=== PATIENT | male | born 1970 | race Caucasian/White ===

== ENCOUNTER 2016-12-15 17:05 | Emergency (ER) | payer OTHER ==
--- NOTE | 2016-12-15 17:37 | ED Physician Documentation ---
PD HPI SKIN - Stated complaint Stated Complaint: LT EAR PAIN - Chief complaint Chief Complaint: Wound - History obtained from History obtained from: Patient - History of Present Illness Timing - onset: Other (He has a number of what he thinks are spider bites on the forearms and in the left ear. No fevers. This is been going on for a couple of days.) Review of Systems Constitutional: reports: Reviewed and negative Cardiac: reports: Reviewed and negative Respiratory: reports: Reviewed and negative PD PAST MEDICAL HISTORY - Past Medical History Cardiovascular: Other Respiratory: Sleep apnea, CPAP use Endocrine/Autoimmune: None GI: GERD : None HEENT: Other Psych: None Musculoskeletal: Other Derm: None - Past Surgical History Past Surgical History: Yes - Present Medications Home Medications: Ambulatory Orders Medication Instructions Recorded Confirmed Neomycin/Polymyx/Hc Otic Drops 4 drops OT TID #1 bottle 12/15/16 [Cortisporin Ear Susp] Omeprazole [PriLOSEC] 20 mg PO DAILY 12/15/16 12/15/16 Sulfamethoxazole/Trimethoprim 1 each PO BID 7 Days 12/15/16 [Sulfamethoxazole-Tmp Ds Tablet] - Allergies Allergies/Adverse Reactions: Allergies Allergy/AdvReac Type Severity Reaction Status Date / Time typhoid vaccine Allergy Unknown Verified 12/15/16 17:12 [Typhoid Vaccine] - Social History Does the pt smoke?: No Smoking Status: Never smoker Does the pt drink ETOH?: Yes Does the pt have substance abuse?: No - Immunizations Immunizations are current?: Yes PD ED PE NORMAL - Vitals Vital signs reviewed: Yes - General General: Alert and oriented X 3, No acute distress - HEENT HEENT: Other (He has a couple of what looked like popped pustules on the dorsal forearms both sides with mild cellulitis and a cellulitic lesion on the left tragus without otitis media.) - Neck Neck: Supple, no meningeal sign, No bony TTP - Neuro Neuro: Alert and oriented X 3, Normal speech - Psych Psych: Normal mood, Normal affect Results - Vitals Vitals: Vital Signs - 24 hr 12/15/16 17:09 Temperature 37.1 C Heart Rate 91 Respiratory 18 Rate Blood Pressure 142/88 H O2 Saturation 100 Oxygen O2 Source Room air Departure - Departure Disposition: 01 Home, Self Care Clinical Impression: Cellulitis Qualifiers: Site of cellulitis: unspecified site Qualified Code(s): L03.90 - Cellulitis, unspecified Condition: Good Record reviewed to determine appropriate education?: Yes Instructions: Cellulitis Dc Prescriptions: Neomycin/Polymyx/Hc Otic Drops [Cortisporin Ear Susp] 4 drops OT TID #1 bottle Sulfamethoxazole/Trimethoprim [Sulfamethoxazole-Tmp Ds Tablet] 1 each PO BID 7 Days Comments: Call your doctor to arrange a follow up appointment. Make the next available appointment. In the interim return anytime if worse or if new symptoms develop. Your blood pressure was elevated today on check in to the emergency department. This does not mean that you have hypertension, it is a common phenomenon to check into the emergency department and have elevated blood pressure. I recommend that you see your primary care physician within the week to have it rechecked when you're feeling better.
[2016-12-15 17:52] VITALS: BP 130/85
== END 2016-12-15 17:50 | disposition home or self-care (01) ==
LOC: ED 17:05
DX: L03.90 Cellulitis, unspecified (principal); R03.0 Elevated blood-pressure reading, without diagnosis of hypertension; G47.30 Sleep apnea, unspecified; K21.9 Gastro-esophageal reflux disease without esophagitis
CPT/HCPCS: 99283

== ENCOUNTER 2018-12-22 07:42 | Outpatient (CLI) | payer OTHER ==
--- NOTE | 2018-12-22 13:59 | MRI Report ---
Reason: HEADACHE, OTHER SPECIFIED HEALTH STATUS Procedure Date: 12/22/2018 Accession Number: [id number] / [id number] Procedure: MRI - Cervical Spine W/O CPT Code: FULL RESULT: EXAM: MRI CERVICAL SPINE WITHOUT CONTRAST EXAM DATE: 12/22/2018 08:57 AM. CLINICAL HISTORY: Headache. Neck pain. COMPARISONS: BRAIN W/O 12/22/2018 8:02 AM. TECHNIQUE: Multiplanar, multisequence T1-weighted and fluid-sensitive sequences of the cervical spine without contrast. Other: None. FINDINGS: Neurologic Structures: The visualized posterior fossa structures are unremarkable. No signal abnormality in the visualized spinal cord. The spinal canal is adequate. Alignment: No scoliosis or spondylolisthesis. Bone Marrow: No gross fractures or bone lesions. No marrow edema. Interspace Levels/Facets: C1-C2: Unremarkable. C2-C3: Unremarkable. C3-C4: Unremarkable. C4-C5: Unremarkable. C5-C6: Unremarkable. C6-C7: Unremarkable. C7-T1: Unremarkable. Musculature: Normal. No edema or fatty atrophy. Other: The paravertebral and prevertebral soft tissues are normal. IMPRESSION: 1. Normal MRI of the cervical spine. Cervical spinal cord is normal in appearance. No cervical spondylosis. No canal or foraminal stenosis. RADIA
--- NOTE | 2018-12-22 14:11 | MRI Report ---
Reason: HEADACHE,OTHER SPECIFIED HEALTH STATUS Procedure Date: 12/22/2018 Accession Number: [id number] / [id number] Procedure: MRI - Brain W/O CPT Code: FULL RESULT: EXAM: MRI BRAIN WITHOUT CONTRAST EXAM DATE: 12/22/2018 08:55 AM. CLINICAL HISTORY: Headache, other specified health status. COMPARISON: BRAIN 05/16/2010 3:20 PM CERVICAL SPINE W/O 12/22/2018 8:34 AM. TECHNIQUE: Multiplanar, multisequence T1-weighted and fluid-sensitive MR sequences of the brain were performed. Sequences optimized for routine evaluation. Other: None. IV Contrast: None. FINDINGS: Brain Volume: Normal for age. Parenchyma/Dura: No mass, acute infarct or hemorrhage. Normal juarez matter and white matter signal intensity is identified. Ventricles/Cisterns: The ventricles, sulci, and cisterns are unremarkable. No abnormal extra-axial fluid collection or hemorrhage. Orbits: Symmetric and unremarkable. Sella Turcica: The pituitary gland, cavernous sinuses, suprasellar cistern and optic chiasm are unremarkable. IAC: Symmetric and unremarkable. Vasculature: Normal signal flow void is seen in the major arterial structures at the skull base. Sinuses: No acute appearing sinus disease. Mild polypoid mucosal thickening is seen in the right maxillary antrum. Mild scattered mucosal thickening is seen in bilateral ethmoid air cells and inferiorly in the left frontal sinus. Bones: No focal pathologic appearing marrow signal changes. Other: None. IMPRESSION: 1. Normal noncontrast MRI of the brain. No acute abnormality. RADIA
== END 2018-12-22 07:43 | disposition home or self-care (01) ==
LOC: DI 07:42
PROVIDERS: ATTEND Family Medicine
DX: R51 Headache (principal); Z78.9 Other specified health status
CPT/HCPCS: 70551; 72141

== ENCOUNTER 2020-09-21 15:30 | Emergency (ER) | payer OTHER ==
[2020-09-21 16:01] LABS: BASOPHILS # (AUTO) 0.1 10^3/uL (0.0-0.1); BASOPHILS % (AUTO) 1.2 %; EOSINOPHILS # (AUTO) 0.5 10^3/uL (0.0-0.7); EOSINOPHILS % (AUTO) 7.6 %; HCT - HEMATOCRIT 44.2 % (42.0-52.0); HGB - HEMOGLOBIN 15.1 g/dL (14.0-18.0); LYMPHOCYTES # (AUTO) 1.9 10^3/uL (1.5-3.5); LYMPHOCYTES % (AUTO) 27.8 %; MEAN CORPUSCULAR HEMOGLOBIN 30.4 pg (27.0-31.0); MEAN CORPUSCULAR HGB CONC 34.2 g/dL (32.0-36.0); MEAN CORPUSCULAR VOLUME 89.1 fL (80.0-94.0); MEAN PLATELET VOLUME 9.4 fL (7.4-11.4); MONOCYTES # (AUTO) 0.5 10^3/uL (0.0-1.0); MONOCYTES % (AUTO) 8.1 %; NEUTROPHILS # (AUTO) 3.7 10^3/uL (1.5-6.6); PLT - PLATELET COUNT 234 10^3/uL (130-450); RED BLOOD COUNT 4.96 10^6/uL (4.70-6.10); WHITE BLOOD COUNT 6.7 x10^3/uL (4.8-10.8)
--- NOTE | 2020-09-21 16:04 | ED Physician Documentation ---
History of Present Illness - Stated complaint Stated Complaint: ABD PX - Chief complaint Chief Complaint: Abd Pain - Additonal information Additional information: 49-year-old male presents emergency department for evaluation of acute onset p eriumbilical pain be began this morning. No fevers or vomiting. However he does report that about 5 days ago he had a bout of stomach flu with pretty severe vomiting and diarrhea. That has since resolved until the periumbilical pain began this a.m. no pertinent psh Review of Systems Constitutional: denies: Fever, Chills Eyes: reports: Reviewed and negative Ears: reports: Reviewed and negative Nose: reports: Reviewed and negative Throat: reports: Reviewed and negative Cardiac: reports: Reviewed and negative Respiratory: reports: Reviewed and negative GI: reports: Abdominal Pain, Diarrhea. denies: Nausea, Vomiting : denies: Dysuria, Frequency, Hesitancy Skin: reports: Reviewed and negative Musculoskeletal: reports: Reviewed and negative Neurologic: reports: Reviewed and negative PD PAST MEDICAL HISTORY - Past Medical History Cardiovascular: Other Respiratory: Sleep apnea, CPAP use Endocrine/Autoimmune: None GI: GERD : None HEENT: Other Psych: None Musculoskeletal: Other Derm: None - Past Surgical History Past Surgical History: Yes - Present Medications Home Medications: Ambulatory Orders Medication Instructions Recorded Confirmed Omeprazole [PriLOSEC] 20 mg PO DAILY 12/15/16 09/21/20 Amox/Clav 875/125 [Augmentin] 1 each PO Q12H #14 tablet 09/21/20 HYDROcod/ACETAM 5/325 [Check 5/325] 1 - 2 tablet PO BID PRN #14 tablet 09/21/20 Lisinopril [Prinivil] 5 mg PO DAILY 09/21/20 09/21/20 - Allergies Allergies/Adverse Reactions: Allergies Allergy/AdvReac Type Severity Reaction Status Date / Time typhoid vaccine Allergy Unknown Verified 09/21/20 15:38 [Typhoid Vaccine] - Social History Does the pt smoke?: No Smoking Status: Never smoker Does the pt drink ETOH?: Yes Does the pt have substance abuse?: No - Immunizations Immunizations are current?: Yes - POLST Patient has POLST: No PD ED PE NORMAL - General General: Alert and oriented X 3, No acute distress - Neck Neck: Supple, no meningeal sign, No adenopathy - Cardiac Cardiac: RRR, No murmur - Respiratory Respiratory: No respiratory distress, Clear bilaterally - Abdomen Abdomen: Normal bowel sounds, Soft. No: Non tender (Focal tenderness palpation with some generalized erythema of the umbilicus and surrounding tissue. Umbilicus itself appears swollen.) - Back Back: No CVA TTP - Derm Derm: Normal color, Warm and dry, No rash - Extremities Extremities: No deformity, No tenderness to palpate, Normal ROM s pain Results - Vitals Vitals: Vital Signs - 24 hr 09/21/20 15:38 Temperature 36.6 C Heart Rate 76 Respiratory 16 Rate Blood Pressure 144/78 H O2 Saturation 96 Oxygen O2 Source Room air - Labs Labs: Laboratory Tests 09/21/20 09/21/20 09/21/20 15:53 15:53 16:17 WBC 6.7 RBC 4.96 Hgb 15.1 Hct 44.2 MCV 89.1 MCH 30.4 MCHC 34.2 RDW 13.0 Plt Count 234 MPV 9.4 Neut # (Auto) 3.7 Lymph # (Auto) 1.9 Taylor # (Auto) 0.5 Eos # (Auto) 0.5 Baso # (Auto) 0.1 Absolute Nucleated RBC 0.00 Nucleated RBC % 0.0 Sodium 139 Potassium 3.8 Chloride 106 Carbon Dioxide 23 Anion Gap 10.0 BUN 19 Creatinine 1.1 Estimated GFR (MDRD) 71 L Glucose 117 H Calcium 9.3 Total Bilirubin 0.5 AST 21 ALT 35 Alkaline Phosphatase 69 Total Protein 7.6 Albumin 4.4 Globulin 3.2 Albumin/Globulin Ratio 1.4 Lipase 36 Urine Color YELLOW Urine Clarity CLEAR Urine pH 5.5 Ur Specific [place] 1.025 Urine Protein NEGATIVE Urine Glucose (UA) NEGATIVE Urine Ketones NEGATIVE Urine Occult Blood TRACE-INTA Urine Nitrite NEGATIVE Urine Bilirubin NEGATIVE Urine Urobilinogen 0.2 (NORMAL) Ur Leukocyte Esterase NEGATIVE Ur Microscopic Review NOT INDICATED Urine Culture Comments NOT INDICATED - Rads (name of study) CT abd Radiology: Final report received (small fat-containing umbilical hernia) PD MEDICAL DECISION MAKING - ED course Complexity details: reviewed results, re-evaluated patient, d/w patient, d/w [facility] consultant (DIEUDONNE) ED course: 49-year-old male presents emergency department with acute onset periumbilical abdominal pain that began this a.m. He does have a small amount of erythema surrounding the umbilicus but no induration. He has had no fevers or vomiting. He did report that about 5 days ago he had stomach flu which had included vomiting and diarrhea. No pertinent past surgical history. Screening labs show no significant concerns leukocytosis or electrolyte derangement. A CT of the abdomen did confirm a small fat-containing umbilical hernia. I did discuss this case with on-call surgeon Dr. Vo. At this time given his body habitus and the acute presentation of the hernia she did not feel that this would be a hernia that could be fixed with mesh. We discussed that as it was an incarcerated fat-containing hernia only if his pain was well controlled he may tolerate oral antibiotics and follow-up with surgery as an outpatient to have the surgery done in one-step as opposed to 2. I discussed this possibility with the patient and he feels that his pain is reasonably well controlled right now without any narcotics and he would like to be discharged home. I will write a prescription for 7-day course of Augmentin. Emergent return precautions were discussed for increased pain, erythema uncontrolled vomiting black or bloody bowel movements. He will be given a very limited amount of hydrocodone for home use. You also be advised to follow-up with the surgery clinic as soon as possible. Departure - Departure Disposition: 01 Home, Self Care Clinical Impression: Umbilical hernia Qualifiers: Obstruction and gangrene presence: without obstruction or gangrene Qualified Code(s): K42.9 - Umbilical hernia without obstruction or gangrene Condition: Stable Record reviewed to determine appropriate education?: Yes Instructions: Hernias Nb Follow-Up: Mireya Joyce MD [Provider Admit Priv/Credential] - Prescriptions: Amox/Clav 875/125 [Augmentin] 1 each PO Q12H #14 tablet HYDROcod/ACETAM 5/325 [Check 5/325] 1 - 2 tablet PO BID PRN #14 tablet PRN Reason: Pain Comments: Ben you do have an incarcerated umbilical hernia. This means that there is a small piece of fat protruding through the muscle wall of your abdomen that is trapped. It does not contain intestines which is very important. In the long- term you will need surgery of for this. However after discussing with the surgeon it is likely that we could do the surgery and 1 step instead of 2 if we are able to get control of your pain and symptoms at home. I have written a prescription for some Augmentin that you are to fill and take twice daily for the next week. If at any point you have increased redness, worsening pain fevers uncontrolled vomiting black or bloody stools or the area of redness increases beyond the outlined area the please return immediately to the ER for a second look. Please call Dr. Joyce's office tomorrow or Thursday to schedule prompt follow-up.
[2020-09-21 16:11] LABS: ALBUMIN 4.4 g/dL (3.2-5.5); ALBUMIN/GLOBULIN RATIO 1.4 (1.0-2.2); BILIRUBIN,TOTAL 0.5 mg/dL (0.2-1.0); CALCIUM 9.3 mg/dL (8.5-10.3); CREATININE 1.1 mg/dL (0.6-1.2); POTASSIUM 3.8 mmol/L (3.5-5.0); TOTAL PROTEIN 7.6 g/dL (6.7-8.2)
[2020-09-21] MEDS ORDERED: IOVERSOL 320 100 ML VIAL IVP ONE ×2 (16:21→16:32)
[2020-09-21 16:25] LABS: BILIRUBIN,URINE NEGATIVE (NEGATIVE); GLUCOSE, URINE (UA) NEGATIVE (NEGATIVE); KETONES,URINE (UA) NEGATIVE (NEGATIVE); LEUKOCYTE ESTERASE, URINE NEGATIVE (NEGATIVE); NITRITE,URINE NEGATIVE (NEGATIVE); OCCULT BLOOD,URINE TRACE-INTA (NEGATIVE); PH,URINE 5.5 PH (5.0-7.5); PROTEIN,URINE NEGATIVE (NEGATIVE); UROBILINOGEN,URINE 0.2 (NORMAL) E.U./dL (NORMAL)
[2020-09-21 16:29] LABS: CLARITY,URINE CLEAR (CLEAR)
--- NOTE | 2020-09-21 16:41 | CT Report ---
PROCEDURE: Abdomen/Pelvis W INDICATIONS: Periumbilical pain; clinical concern for incarcerated hernia TECHNIQUE: After the administration of intravenous contrast, 5 mm thick sections acquired from the diaphragms to the symphysis. 2.5 mm thick coronal and sagittal reformats were acquired. Optional 10-minute delay ed imaging may be performed from the kidneys to the bladder. For radiation dose reduction, the follo wing was used: automated exposure control, adjustment of mA and/or kV according to patient size. COMPARISON: None. FINDINGS: Image quality: Excellent. ABDOMEN: There is a small fat-containing periumbilical hernia, best seen on series 3 image 57 and series 7 marlon ge 43. The fascial defect of this hernia measures approximately 1.1 cm. The hernia contains only omen gladis fat which does appear to be incarcerated, as there is some fat stranding. There is no bowel withi n the hernia sac. The bowel is normal in appearance with no abnormally dilated or thickened loop. Normal CT appearance of the liver, spleen, pancreas, gallbladder, and adrenal glands. Multiple simple appearing small renal cysts. No hydronephrosis or urinary tract calculus. Nonaneurysmal abdominal ao rta. No threshold enlarged intra-abdominal, retroperitoneal, pelvic, or inguinal lymph node. No free pelvic fluid. Urinary bladder is decompressed and not well evaluated but appears grossly unremarkable . Included portions of the lung bases are clear. No acute or suspicious osseous lesion. IMPRESSION: Small fat-containing periumbilical hernia, likely incarcerated. Reviewed by: Travis Burns MD on 09/21/2020 4:39 PM PDT Approved by: Travis Burns MD on 09/21/2020 4:39 PM PDT Station ID: [id number]
[2020-09-21] MEDS ORDERED: HYDROcod/ACETAM 5/325 MG TABLET PO STA (16:55)
[2020-09-21] MEDS ORDERED: AMOX/CLAV 875 MG/125 MG TABLET PO STA (17:29)
[2020-09-21 17:39] VITALS: BP 126/88
== END 2020-09-21 17:45 | disposition home or self-care (01) ==
LOC: ED 15:30
DX: K42.0 Umbilical hernia with obstruction, without gangrene (principal)
CPT/HCPCS: 36415; 74177; 80053; 81003; 83690; 85025; 99283; 99284; A9270; Q9967; 81001; 87086

== ENCOUNTER 2020-09-23 20:01 | Emergency (ER) | payer OTHER ==
--- NOTE | 2020-09-23 20:49 | ED Physician Documentation ---
PD HPI SKIN - Stated complaint Stated Complaint: ABD REDNESS - Chief complaint Chief Complaint: Wound - History obtained from History obtained from: Patient - Additional information Additional information: 49-year-old gentleman was seen by my partner 2 days ago for periumbilical pain that it started that day. Work-up included a CT which showed incarcerated fat in the hernia. He had a white count of 6.7. Case was discussed by phone at that time with the on-call surgeon. He was started on antibiotics. There was area of redness around the umbilical hernia that was marked and he was advised to return for recheck if worse. He describes no diffuse abdominal pain, bowel movements are normal. No nausea. No acute fevers or chills. Review of Systems Ten Systems: 10 systems reviewed and negative Constitutional: reports: Reviewed and negative Eyes: reports: Reviewed and negative Nose: reports: Reviewed and negative PD PAST MEDICAL HISTORY - Past Medical History Cardiovascular: Other Respiratory: Sleep apnea, CPAP use Endocrine/Autoimmune: None GI: GERD : None HEENT: Other Psych: None Musculoskeletal: Other Derm: None - Past Surgical History Past Surgical History: Yes - Present Medications Home Medications: Ambulatory Orders Medication Instructions Recorded Confirmed Omeprazole [PriLOSEC] 20 mg PO DAILY 12/15/16 09/23/20 Amox/Clav 875/125 [Augmentin] 1 each PO Q12H #14 tablet 09/21/20 09/23/20 HYDROcod/ACETAM 5/325 [[place] 5/325] 1 - 2 tablet PO BID PRN #14 tablet 09/21/20 09/23/20 Lisinopril [Prinivil] 5 mg PO DAILY 09/21/20 09/23/20 - Allergies Allergies/Adverse Reactions: Allergies Allergy/AdvReac Type Severity Reaction Status Date / Time typhoid vaccine Allergy Unknown Verified 09/23/20 20:07 [Typhoid Vaccine] - Social History Does the pt smoke?: No Smoking Status: Never smoker Does the pt drink ETOH?: Yes Does the pt have substance abuse?: No - Immunizations Immunizations are current?: Yes - POLST Patient has POLST: No PD ED PE NORMAL - Vitals Vital signs reviewed: Yes - General General: Alert and oriented X 3, No acute distress - HEENT HEENT: PERRL, EOMI - Neck Neck: Supple, no meningeal sign, No bony TTP - Cardiac Cardiac: RRR, No murmur - Respiratory Respiratory: No respiratory distress, Clear bilaterally - Abdomen Abdomen: Other (He has an incarcerated umbilical hernia which is quite tender, the hernia sac is quite small. There is no diffuse abdominal tenderness and the abdomen itself is soft. There is some redness around the previous jennifer placed around the umbilicus.) - Back Back: No CVA TTP - Derm Derm: Normal color, Warm and dry - Neuro Neuro: Alert and oriented X 3, Normal speech Results - Vitals Vitals: Vital Signs - 24 hr 09/23/20 09/23/20 09/23/20 20:04 20:17 21:55 Temperature 36.3 C L 36.3 C L 36.5 C Heart Rate 81 81 80 Respiratory 16 16 16 Rate Blood Pressure 146/82 H 146/82 H 138/80 H O2 Saturation 98 98 98 Oxygen O2 Source Room air - Labs Labs: Laboratory Tests 09/23/20 09/23/20 21:01 21:01 WBC 6.2 RBC 5.07 Hgb 15.4 Hct 45.5 MCV 89.7 MCH 30.4 MCHC 33.8 RDW 12.9 Plt Count 242 MPV 9.5 Neut # (Auto) 3.1 Lymph # (Auto) 1.9 [place] # (Auto) 0.5 Eos # (Auto) 0.5 Baso # (Auto) 0.1 Absolute Nucleated RBC 0.00 Nucleated RBC % 0.0 Sodium 138 Potassium 3.7 Chloride 107 Carbon Dioxide 23 Anion Gap 8.0 BUN 18 Creatinine 1.3 H Estimated GFR (MDRD) 59 L Glucose 113 H Calcium 9.4 - Rads (name of study) CT ap Radiology: EMP read contemporaneously (Mild worsening of inflammatory changes but still no bowel in the hernia sac) PD MEDICAL DECISION MAKING - ED course ED course: After my initial evaluation I discussed the case by phone with our on-call surgeon, Dr. Vital who recommended repeating blood work and CT. If no evidence of bowel incarceration or leukocytosis he will see him tomorrow in the clinic, if he has leukocytosis or bowel incarceration I will call him back tonight. Departure - Departure Disposition: 01 Home, Self Care Clinical Impression: Umbilical hernia Qualifiers: Obstruction and gangrene presence: without obstruction or gangrene Qualified Code(s): K42.9 - Umbilical hernia without obstruction or gangrene Condition: Good Record reviewed to determine appropriate education?: Yes Follow-Up: Stephen Vital MD [Provider Admit Priv/Credential] - Tomorrow Comments: No change in the amount of fat in the hernia nor in your white blood cell count. Continue the antibiotics. The surgeon is aware of your case and would like to see you tomorrow, call his office first thing to arrange for an appointment. Return if worsening. Discharge Date/Time: 09/23/20 21:55
[2020-09-23] MEDS ORDERED: IOVERSOL 320 100 ML VIAL IVP ONE ×2 (21:02→21:43)
[2020-09-23 21:08] LABS: BASOPHILS # (AUTO) 0.1 10^3/uL (0.0-0.1); BASOPHILS % (AUTO) 1.3 %; EOSINOPHILS # (AUTO) 0.5 10^3/uL (0.0-0.7); EOSINOPHILS % (AUTO) 8.6 %; HCT - HEMATOCRIT 45.5 % (42.0-52.0); HGB - HEMOGLOBIN 15.4 g/dL (14.0-18.0); LYMPHOCYTES # (AUTO) 1.9 10^3/uL (1.5-3.5); LYMPHOCYTES % (AUTO) 31.2 %; MEAN CORPUSCULAR HEMOGLOBIN 30.4 pg (27.0-31.0); MEAN CORPUSCULAR HGB CONC 33.8 g/dL (32.0-36.0); MEAN CORPUSCULAR VOLUME 89.7 fL (80.0-94.0); MEAN PLATELET VOLUME 9.5 fL (7.4-11.4); MONOCYTES # (AUTO) 0.5 10^3/uL (0.0-1.0); MONOCYTES % (AUTO) 7.9 %; NEUTROPHILS # (AUTO) 3.1 10^3/uL (1.5-6.6); NEUTROPHILS % (AUTO) 50.7 %; PLT - PLATELET COUNT 242 10^3/uL (130-450); RED BLOOD COUNT 5.07 10^6/uL (4.70-6.10); RED CELL DISTRIBUTION WIDTH 12.9 % (12.0-15.0); WHITE BLOOD COUNT 6.2 x10^3/uL (4.8-10.8)
[2020-09-23 21:18] LABS: CALCIUM 9.4 mg/dL (8.5-10.3); CREATININE 1.3 mg/dL (0.6-1.2); POTASSIUM 3.7 mmol/L (3.5-5.0)
[2020-09-23 21:56] VITALS: BP 138/80
--- NOTE | 2020-09-23 22:05 | CT Report ---
PROCEDURE: Abdomen/Pelvis W INDICATIONS: IV only, worse, umbo hernia redness TECHNIQUE: After the administration of intravenous contrast, 5 mm thick sections acquired from the diaphragms to the symphysis. 2.5 mm thick coronal and sagittal reformats were acquired. Optional 10-minute delay ed imaging may be performed from the kidneys to the bladder. For radiation dose reduction, the [employer] wing was used: automated exposure control, adjustment of mA and/or kV according to patient size. COMPARISON: 09/21/2020. FINDINGS: ABDOMEN: Lung bases: Normal Hepatic steatosis. Spleen: Normal Gallbladder: Contracted otherwise unremarkable Bile ducts: Normal Pancreas: Normal Adrenals: Normal Presumed bilateral renal cysts although these are technically too small to characterize accurately. N o hydronephrosis. Bowel loops: Normal Appendix appears normal although there is incidentally noted appendicolith for example image 62/3. No free fluid or air. Colonic diverticulosis incidentally noted without evidence of acute inflammatio n. Abdominal nodes: Normal Aorta: Normal IVC: Normal Redemonstrated fat-containing small periumbilical hernia, with surrounding inflammation. Overall cell ulitis is mildly worsened since 09/21/2020. PELVIS: Bladder: Normal Pelvic nodes: Normal Groin: Normal Bones: No vertebral body compression fracture. No suspicious bone lesion. IMPRESSION: Redemonstrated fat-containing periumbilical hernia. Surrounding inflammatory changes and cellulitis h ave mildly worsened since 09/21/2020. No discrete drainable abscess identified Additional chronic and incidental findings as above. Reviewed by: Sharath Marcial MD on 09/23/2020 10:03 PM PDT Approved by: Sharath Marcial MD on 09/23/2020 10:03 PM PDT Station ID: [id number]
== END 2020-09-23 21:55 | disposition home or self-care (01) ==
LOC: ED 20:01
DX: K42.0 Umbilical hernia with obstruction, without gangrene (principal); L53.9 Erythematous condition, unspecified
CPT/HCPCS: 36415; 74177; 80048; 85025; 99283; 99284; Q9967

== ENCOUNTER 2020-10-01 07:00 | Outpatient (CLI) | payer OTHER | END 2020-10-01 23:59 | disposition home or self-care (01) | LOC: COV 07:00 | PROVIDERS: ATTEND Surgery | DX: Z01.812 Encounter for preprocedural laboratory examination (principal); K42.9 Umbilical hernia without obstruction or gangrene; Z20.822 Contact with and (suspected) exposure to COVID-19 ==

== ENCOUNTER 2020-10-03 07:31 | Day surgery (SDC) | payer OTHER ==
--- OUTSIDE RECORDS SUMMARY | 2020-10-03 07:34 | EXTERNAL MEDICAL SUMMARY RPT | Continuity of Care Document ---
:1970 Demographics Phone Unavailable Preferred Language Unknown Marital Status Unknown Muslim Affiliation Unknown Race Unknown Ethnic Group Unknown Author Organization [facility] Address [address] [phone] Phone Social History date description facility [phone]
[2020-10-03] MEDS ORDERED: PROPOFOL 500 MG/50 ML 500 MG/50 ML VIAL ONE (07:44)
[2020-10-03] MEDS ORDERED: LIDOCAINE-MPF 2% 5 ML VIAL ONE (07:44)
--- NOTE | 2020-10-03 08:06 | ANESTHESIA ---
Pre-Anesthesia VS, & Labs - Diagnosis hematochezia - Procedure colonoscopy Height: 6 ft - NPO >8 hours Home Medications and Allergies Omeprazole [PriLOSEC] 20 mg PO DAILY 12/15/16 Lisinopril [Prinivil] 5 mg PO DAILY 09/21/20 Allergies/Adverse Reactions: Allergies Allergy/AdvReac Type Severity Reaction Status Date / Time typhoid vaccine Allergy massive Verified 10/02/20 13:04 [Typhoid Vaccine] headache Anes History & Medical History - Medical History Cardiovascular: reports: Hypertension Pulmonary: reports: Sleep apnea, CPAP use Gastrointestinal: reports: GERD Urinary: reports: None Musculoskeletal: reports: Osteoarthritis, Chronic back pain Endocrine/Autoimmune: reports: None Skin: reports: None Smoking Status: Never smoker Exam General: Alert, Oriented x3 Dental: WNL Mouth Opening: Greater than 4 Fingerbreadths Neck Mobility: Normal Mallampati classification: II Thyromental Distance: greater than 6 cm Respiratory: Lungs clear Cardiovascular: Regular rate Plan Anesthesia Type: MAC, Total IV Consent for Procedure(s) Verified and Reviewed: Yes Code Status: Attempt Resuscitation ASA classification: 2-Mild systemic disease Is this case an emergency?: No
--- NOTE | 2020-10-03 09:40 | ANESTHESIA POST OP EVALUATION ---
Anesthesia Post Eval - Post Anesthesia Eval Vitals: Last Vital Signs Temp 36.0 C L 10/03/20 09:35 Pulse 80 10/03/20 09:35 Resp 21 10/03/20 09:35 BP 119/71 10/03/20 09:35 Pulse Ox 97 10/03/20 09:35 CV Function Including HR & BP: Stable Pain Control: Satisfactory Nausea & Vomiting: Negative Mental Status: Baseline Respiratory Status: Airway Patent Hydration Status: Satisfactory Anesthesia Complications: None
[2020-10-03] MEDS ORDERED: LACTATED RINGERS 1,000 ML IV ONE (09:41)
[2020-10-03 09:47] VITALS: BP 128/90
== END 2020-10-03 07:32 | disposition home or self-care (01) ==
LOC: SDS 07:31
PROVIDERS: ATTEND Surgery
PROC: 0DBK8ZZ Excision of Ascending Colon, Via Natural or Artificial Opening Endoscopic (ICD-10-PCS; principal; 2020-10-03 08:30)
DX: D12.2 Benign neoplasm of ascending colon (principal); K64.8 Other hemorrhoids; K63.89 Other specified diseases of intestine; K21.9 Gastro-esophageal reflux disease without esophagitis; K42.9 Umbilical hernia without obstruction or gangrene; G47.30 Sleep apnea, unspecified; I10 Essential (primary) hypertension; Z79.899 Other long term (current) drug therapy
CPT/HCPCS: 45380; J7120

== ENCOUNTER 2020-10-04 09:29 | Day surgery (SDC) | payer OTHER ==
--- OUTSIDE RECORDS SUMMARY | 2020-10-04 09:32 | EXTERNAL MEDICAL SUMMARY RPT | Continuity of Care Document ---
:1970 Demographics Phone Unavailable Preferred Language Unknown Marital Status Unknown Synagogue Affiliation Unknown Race Unknown Ethnic Group Unknown Author Organization [facility] Address [address] [phone] Phone Social History date description facility [phone]
[2020-10-04] MEDS ORDERED: LACTATED RINGERS 1,000 ML IV ONE ×3 (10:18→14:46)
[2020-10-04] MEDS ORDERED: MORPHINE 2 MG/ML CARPUJECT IVP PRN (10:34)
[2020-10-04] MEDS ORDERED: ATROPINE ABBOJECT 1 MG/10 ML SYRINGE IVP PRN (10:34)
[2020-10-04] MEDS ORDERED: ONDANSETRON 4 MG/2 ML VIAL IVP PRN ×2 (10:34→14:03)
[2020-10-04] MEDS ORDERED: HYDROmorphone 0.5 MG/0.5 ML SYRINGE IVP PRN ×2 (10:34→14:03)
[2020-10-04] MEDS ORDERED: METOCLOPRAMIDE 10 MG/2 ML VIAL IVP PRN (10:34)
[2020-10-04] MEDS ORDERED: fentaNYL 100 MCG/2 ML VIAL IVP PRN (10:34)
[2020-10-04] MEDS ORDERED: NALOXONE 0.4 MG/ML VIAL IVP PRN (10:34)
[2020-10-04] MEDS ORDERED: ePHEDrine 50 MG/ML VIAL IVP PRN (10:34)
--- NOTE | 2020-10-04 10:34 | ANESTHESIA ---
Pre-Anesthesia VS, & Labs - Diagnosis umbilical hernia - Procedure Open Umbilical Hernia repair Vital Signs: Temp Pulse Resp BP Pulse Ox 36.0 C L 70 17 131/82 H 96 10/04/20 09:36 10/04/20 09:36 10/04/20 09:36 10/04/20 09:36 10/04/20 09:36 Height: 6 ft Weight (kg): 102.6 kg Body Mass Index: 30.7 BMI Classification: Obese - NPO >8 hours - Lab Results Lab results reviewed: Yes Home Medications and Allergies Omeprazole [PriLOSEC] 20 mg PO DAILY 12/15/16 Lisinopril [Prinivil] 5 mg PO DAILY 09/21/20 Allergies/Adverse Reactions: Allergies Allergy/AdvReac Type Severity Reaction Status Date / Time typhoid vaccine Allergy massive Verified 10/04/20 09:46 [Typhoid Vaccine] headache Anes History & Medical History - Anesthetic History Anesthesia Complications: reports: No previous complications Family history of Anesthesia Complications: Denies Family history of Malignant Hyperthermia: Denies - Medical History Cardiovascular: reports: Hypertension Pulmonary: reports: Sleep apnea, CPAP use Gastrointestinal: reports: GERD Urinary: reports: None Musculoskeletal: reports: Osteoarthritis, Chronic back pain Endocrine/Autoimmune: reports: None Skin: reports: None Smoking Status: Never smoker Exam General: Alert, Oriented x3, Cooperative, No acute distress Dental: WNL Mouth Openin Fingerbreadth Neck Mobility: Normal Mallampati classification: I Respiratory: Lungs clear, Normal breath sounds, No respiratory distress, No accessory muscle use Cardiovascular: Regular rate, Normal S1, Normal S2, No murmurs Plan Anesthesia Type: General, Transverse Abdominis Plane (TAP) Block Consent for Procedure(s) Verified and Reviewed: Yes Code Status: Attempt Resuscitation ASA classification: 2-Mild systemic disease Is this case an emergency?: No
[2020-10-04] MEDS ORDERED: LACTATED RINGERS 1,000 ML IV SCH (11:00)
[2020-10-04] MEDS ORDERED: MIDAZOLAM 2 MG/2 ML VIAL ONE (12:26)
[2020-10-04] MEDS ORDERED: ROCURONIUM 50 MG/5 ML VIAL ONE (12:26)
[2020-10-04] MEDS ORDERED: PROPOFOL 200 MG/20 ML VIAL IVP ONE (12:26)
[2020-10-04] MEDS ORDERED: fentaNYL 100 MCG/2 ML VIAL ONE ×2 (12:26→13:17)
[2020-10-04] MEDS ORDERED: LIDOCAINE-MPF 2% 5 ML VIAL ONE (12:26)
[2020-10-04] MEDS ORDERED: ceFAZolin 1 GM VIAL ONE ×2 (13:08→13:35)
[2020-10-04] MEDS ORDERED: LIDOCAINE 2%-EPI 1:100000 20 ML MDV SUBQ ONE ×2 (13:11)
[2020-10-04] MEDS ORDERED: BUPIVACAINE 0.5% PF 30 ML VIAL INFIL ONE ×2 (13:11)
[2020-10-04] MEDS ORDERED: ROPIVACAINE 0.5% PF 20 ML AMPULE ONE (13:19)
[2020-10-04] MEDS ORDERED: LIDOCAINE 2%-EPI 1:100000 20 ML MDV ONE (13:34)
[2020-10-04] MEDS ORDERED: BUPIVACAINE 0.5% PF 30 ML VIAL ONE (13:35)
[2020-10-04] MEDS ORDERED: GLYCOPYRROLATE 1 MG/5 ML VIAL ONE (13:50)
[2020-10-04] MEDS ORDERED: DEXAMETHASONE 4 MG/ML VIAL ONE (13:50)
[2020-10-04] MEDS ORDERED: KETOROLAC 30 MG/ML VIAL ONE (13:50)
[2020-10-04] MEDS ORDERED: ONDANSETRON 4 MG/2 ML VIAL ONE (13:50)
[2020-10-04] MEDS ORDERED: NEOSTIGMINE 1 MG/1 ML 10 ML MDV ONE (13:50)
[2020-10-04] MEDS ORDERED: HYDROcod/ACETAM 5/325 MG TABLET PO PRN (14:03)
--- NOTE | 2020-10-04 14:24 | OPERATIVE REPORT ---
Operative Report - General Procedure Date: 10/04/20 Planned Procedure: 1. Diagnostic laparoscopy 2. Laparoscopic assisted umbilical hernia repair 3. Intraperitoneal onlay mesh 4. Tap block per anesthesia Pre-Op Diagnosis: Incarcerated umbilical hernia; abdominal pain; nonreducible Procedure Performed: 1. Diagnostic laparoscopy 2. Laparoscopic assisted umbilical hernia repair 3. Intraperitoneal onlay mesh 4. Tap block per anesthesia Post Op Diagnosis: Same; incarcerated fat; successful primary repair with intraperitoneal onla - Procedure Note Primary Surgeon: Zahraa Secondary Surgeon: John Anesthesia Provider: Isidro Anesthesia Technique: General ET tube, Local, Regional block Pathology: Umbilical hernia sac with incarcerated fat Estimated Blood Loss (mL): 5 Indications: See clinic note Findings: 1. Large umbilical hernia with incarcerated omental fat 2. Primary closure with approximately 7-10 set centimeters of overlay laterally about this defect 3. Hemostatic with no complications Complications: None - Other Other Information/Narrative: After obtaining informed consent, the patient is brought to the operating room and placed in the supine position on the operating table. Following successful induction of general anesthesia, appropriate padding of all bony prominences, and placement of appropriate monitors, the abdomen was prepped and draped in the standard surgical fashion. A timeout was held per scope protocol. All elements of the surgical safety checklist were followed before, during, and after the procedure. Following infiltration with local anesthetic to create a field block, an incision was created directly over the umbilicus and carried through the skin and subcutaneous tissue to reveal the incarcerated hernia below below. Within this hernia sac which was entered cautiously without any inadvertent probably viscus injury, we noted a knuckle abdominal fat/omentum incarcerated within the umbilical fascial defect. This was removed and resected. No inadvertent hollow viscus injury. We created can skin flaps and dissected the fascia to its respective components towards and ultimate primary repair which was planned to be performed given its size with an intraperitoneal onlay mesh reinforcement. This is also known by its acronym IPOM. To reiterate, the defect was approximately 3cm diameter and was closed vertically with multiple [id number] of 0 Vicryl. Prior to definitive closure a mesh was chosen from the [employer]id[employer] family of products ST with Seprafilm covering/coating echo ventral light synthetic 11 cm round. This oval mesh was rolled and inserted into the hernia defect prior to definitive closure. Scaffold suture secured outside on a Jory clamp. The abdomen was then insufflated to 15 mmHg pressure through Left upper quadrant 5 mm trocar Additional trocars were placed as follows: 1. Right upper Quadrant 5 mm diameter trocar 2. Left upper Quadrant 5 mm diameter trocar All trocars were placed under direct laparoscopic visualization. The mesh was straightened and flattened in the abdominal cavity up against the abdominal wall. There was good apposition after the scaffold suture was pulled taut against the anterior abdominal wall of the mesh which was organ oriented appropriately with the coating facing intra-abdominal. At this time we proceeded to affix the mesh using approximate absorbable tacks which was facilitated using the 2 trochars in the left and right upper quadrants. This was performed sequentially through all trocars in a 360-degree fashion. The mesh was examined once again, and the mesh was documented by photography showing that it was clearly lying flat anteriorly against the abdominal wall. Pictures were taken of the mesh. The abdomen was then checked for hemostasis. All trocar sites were closed with skin earnestine and performed for local blocks with local anesthetic. We proceeded to perform umbilicoplasty and the umbilicus was reconstructed using 0 Vicryl and 3-0 Vicryl suture. Umbilical incision was also reapproximated ultimately for the skin using skin earnestine. All sites were dressed in Tegaderm and Telfa. Patient tolerated procedure well which was no complication. All counts for sponges, needles, and instrument were correct at the conclusion of the case. The patient was allowed to wake from anesthesia without difficulty.
[2020-10-04 15:23] VITALS: BP 140/96
--- NOTE | 2020-10-04 18:13 | ANESTHESIA POST OP EVALUATION ---
Anesthesia Post Eval - Post Anesthesia Eval Vitals: Last Vital Signs Temp 36.2 C L 10/04/20 14:45 Pulse 73 10/04/20 15:17 Resp 16 10/04/20 15:17 BP 140/96 H 10/04/20 15:17 Pulse Ox 99 10/04/20 15:17 CV Function Including HR & BP: Stable Pain Control: Satisfactory Nausea & Vomiting: Negative Mental Status: Baseline Respiratory Status: Airway Patent Hydration Status: Satisfactory Anesthesia Complications: None
== END 2020-10-04 09:30 | disposition home or self-care (01) ==
LOC: SDS 09:29
PROVIDERS: ATTEND Surgery
PROC: 0WUF0JZ Supplement Abdominal Wall with Synthetic Substitute, Open Approach (ICD-10-PCS; principal; 2020-10-04 10:45)
DX: K42.0 Umbilical hernia with obstruction, without gangrene (principal); R19.4 Change in bowel habit; K21.9 Gastro-esophageal reflux disease without esophagitis; K92.1 Melena; E66.9 Obesity, unspecified; Z68.30 Body mass index [BMI] 30.0-30.9, adult; I10 Essential (primary) hypertension; G47.30 Sleep apnea, unspecified
CPT/HCPCS: 49587; C1781; J7120; 88302

== ENCOUNTER 2021-03-02 21:33 | Emergency (ER) | payer OTHER ==
[2021-03-02 21:39] VITALS: BP 143/92
[2021-03-02] MEDS ORDERED: TRIAMCINOLONE 40 MG/ML VIAL IM STA (21:47)
[2021-03-02] MEDS ORDERED: HYDROcod/ACET 5/325 Prepack 4 PO STA (21:47)
[2021-03-02] MEDS ORDERED: BUPIVACAINE 0.5% PF 30 ML VIAL SUBQ ONE (21:47)
[2021-03-02] MEDS ORDERED: KETOROLAC 30 MG/ML VIAL IM STA (21:47)
[2021-03-02] MEDS ORDERED: oxyCODONE/ACET 5/325 Prepack 4 PO STA (21:49)
--- NOTE | 2021-03-02 21:49 | ED Physician Documentation ---
PD HPI BACK PAIN - Stated complaint Stated Complaint: LOWER BACK INJ - Chief complaint Chief Complaint: Back Pain - History obtained from History obtained from: Patient - Additional information Additional information: 50-year-old gentleman with longstanding low back pain, was in chiropractic for a long time which was unhelpful and also physical therapy which was not particularly helpful. Pain became much worse tonight and he noticed a pop while lifting a generator at home. Pain is to the right of the lower lumbar spine. There is no associated weakness, numbness, tingling, saddle anesthesia, fevers. Review of Systems Constitutional: reports: Reviewed and negative Eyes: reports: Reviewed and negative Ears: reports: Reviewed and negative Nose: reports: Reviewed and negative Throat: reports: Reviewed and negative PD PAST MEDICAL HISTORY - Past Medical History Cardiovascular: Other Respiratory: Sleep apnea, CPAP use Endocrine/Autoimmune: None GI: GERD : None HEENT: Other Psych: None Musculoskeletal: Other Derm: None - Past Surgical History Past Surgical History: Yes - Present Medications Home Medications: Ambulatory Orders Medication Instructions Recorded Confirmed Omeprazole [PriLOSEC] 20 mg PO DAILY 12/15/16 03/02/21 lisinopriL [Prinivil] 5 mg PO DAILY 09/21/20 03/02/21 Oxycodone HCl/Acetaminophen 1 - 2 each PO Q6H PRN #14 tablet 03/02/21 [Percocet 5-325 mg Tablet] - Allergies Allergies/Adverse Reactions: Allergies Allergy/AdvReac Type Severity Reaction Status Date / Time typhoid vaccine Allergy massive Verified 03/02/21 21:35 [Typhoid Vaccine] headache - Social History Does the pt smoke?: No Smoking Status: Never smoker Does the pt drink ETOH?: Yes Does the pt have substance abuse?: No - Immunizations Immunizations are current?: Yes - POLST Patient has POLST: No PD ED PE NORMAL - Vitals Vital signs reviewed: Yes - General General: Alert and oriented X 3, No acute distress - Back Back: Other (Focal tenderness lateral to the right of L4-L5. No midline spinal tenderness.) - Extremities Extremities: Other (The patient has equal and normal Achilles and patellar reflexes bilaterally. Normal sensation in all areas of the legs. Patient denies saddle anesthesia. Normal strength in flexion-extension at the ankles, knees, and flexion of the hips.) - Neuro Neuro: Alert and oriented X 3, Normal speech Results - Vitals Vitals: Vital Signs - 24 hr 03/02/21 21:35 Temperature 36.6 C Heart Rate 98 Respiratory 18 Rate Blood Pressure 143/92 H O2 Saturation 97 Oxygen O2 Source Room air Procedures - General procedure General procedure: Trigger point injection in the symptomatic area of the right low back done with a mixture of 9 mL of 0.25% bupivacaine and 1 mL of 40 mg Kenalog. PD MEDICAL DECISION MAKING - ED course ED course: This patient has seemingly uncomplicated musculoskeletal back pain. The patient has no "red flags." Specifically denies IV drug use, fevers, incontinence, saddle anesthesia. Spinal epidural abscess was considered, given that the patient has no fever, is not diabetic, has no spinal tenderness, does not use IV drugs, and has no bilateral neurologic symptoms, the diagnosis of spinal epidural abscess is considered exceedingly unlikely. I am prescribing a short course of short-acting opioid pain medication for this patient. I have reviewed the patients PROVIDER ENROLLMENT SPECIALIST and no concerning findings were noted. I have discussed that the opioids are for short term therapy only, and will not be refilled from the ED. Departure - Departure Disposition: 01 Home, Self Care Clinical Impression: Back pain Qualifiers: Back pain location: low back pain Chronicity: acute Back pain laterality: right Sciatica presence: with sciatica Sciatica laterality: sciatica of right side Qualified Code(s): M54.41 - Lumbago with sciatica, right side Condition: Good Record reviewed to determine appropriate education?: Yes Instructions: ED Low Back Pain Injury Prescriptions: Oxycodone HCl/Acetaminophen [Percocet 5-325 mg Tablet] 1 - 2 each PO Q6H PRN #14 tablet PRN Reason: pain Comments: Prescription sent electronically to [facility] in [place]. As discussed, it seems most likely that the pain you are experiencing tonight is likely related to a ruptured disc given the acuity and radiation. Follow-up with your doctor for recheck especially if not better in the next few days. Consideration for continued physical therapy and/or MRI if symptoms are persistent. Return for new or worsening symptoms. I am prescribing a short course of narcotic pain medication for you. These are p otentially dangerous and addictive medications that should be used carefully. These medications may constipate you. Take an bqqn-hnt-wxijhzh stool softener (docusate) twice daily with plenty of water while taking these medications. If you go 24 hours without a bowel movement, take ohqb-nhy-kcsuvsx miralax, per package instructions. Do not drink or drive while taking these medications. If you received narcotic or sedating medications while in the emergency department, do not drive for 24 hours. Store this medication in a safe, secure place and out of reach of children. It is a violation of federal law to give or sell this medication to another person or to use in a manner other than prescribed. The ED will not refill narcotic prescriptions, including prescriptions lost or stolen. To dispose of unwanted medications: 1. [facility] [address] in [place] has a medication drop box. They accept prescription medications (in pill form) Thursday through Thursday 9:00 a.m. to 5:00 p.m. 2. The [facility] [employer] accepts prescription medications (in pill form only) for disposal year round. Call for more information. 3. Contact the [facility] for the next [facility] sponsored prescription drug collection event. , [phone], or [phone]; Note that many narcotic pain relievers also contain Tylenol/acetaminophen. Please ensure that your total dose of acetaminophen from all sources does not exceed 3 g (3000 mg) per day.
[2021-03-02] MEDS ORDERED: BUPIVACAINE 0.25% PF 10 ML VIAL SUBQ ONE (21:51)
== END 2021-03-02 22:07 | disposition home or self-care (01) ==
LOC: ED 21:33
DX: M54.41 Lumbago with sciatica, right side (principal)
CPT/HCPCS: 20552

== ENCOUNTER 2021-03-19 14:53 | Outpatient (CLI) | payer OTHER ==
--- NOTE | 2021-03-19 16:24 | MRI Report ---
PROCEDURE: Cervical Spine W/O INDICATIONS: Neck pain TECHNIQUE: Noncontrast sagittal T1 spin echo and T2 fast spin echo, sagittal STIR, foraminal oblique sagittal T2 fast spin echo, and axial gradient echo or T2 fast spin echo through the cervical spine. COMPARISON: None. FINDINGS: Image quality: Excellent. Alignment and Curvature: There is normal bony alignment. Bone Marrow: Marrow demonstrates normal overall signal. Spinal Cord: Visualized spinal cord has normal size and signal. No cerebellar tonsillar herniation. Regional Soft Tissues: Prevertebral and paraspinous soft tissues are normal in appearance. C2-C3: No spinal canal or neural foraminal stenosis. C3-C4: No spinal canal or neural foraminal stenosis. C4-C5: No spinal canal or neural foraminal stenosis. C5-C6: No spinal canal or neural foraminal stenosis. C6-C7: No spinal canal or neural foraminal stenosis. C7-T1: No spinal canal or neural foraminal stenosis. IMPRESSION: Normal MRI of the cervical spine. No explanation for neck pain demonstrated. Reviewed by: Travis Burns MD on 03/19/2021 4:23 PM PDT Approved by: Travis Burns MD on 03/19/2021 4:23 PM PDT Station ID: [id number]
== END 2021-03-19 14:54 | disposition home or self-care (01) ==
LOC: DI 14:53
PROVIDERS: ATTEND Psychiatry & Neurology Neurology
DX: M54.2 Cervicalgia (principal)

== ENCOUNTER 2021-09-22 19:46 | Emergency (ER) | payer OTHER ==
[2021-09-22 19:53] VITALS: BP 152/89
--- NOTE | 2021-09-22 20:04 | ED Physician Documentation ---
PD HPI UPPER EXT INJURY - Stated complaint Stated Complaint: LT THUMB PX - Chief complaint Chief Complaint: Trauma Ext - History obtained from History obtained from: Patient - Additonal information Additional information: He was walking last night and tripped and fell on an outstretched left wrist. 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 It is really not the thumb per se. He also has a little bruise on the right forearm with is not bothering him at all. Review of Systems Constitutional: reports: Reviewed and negative Eyes: reports: Reviewed and negative Ears: reports: Reviewed and negative Respiratory: reports: Reviewed and negative PD PAST MEDICAL HISTORY - Past Medical History Cardiovascular: Other Respiratory: Sleep apnea, CPAP use Neuro: Headaches Endocrine/Autoimmune: None GI: GERD : None HEENT: Other Psych: None Musculoskeletal: Other Derm: None - Past Surgical History Past Surgical History: Yes - Present Medications Home Medications: Ambulatory Orders Medication Instructions Recorded Confirmed Omeprazole [PriLOSEC] 20 mg PO DAILY 12/15/16 09/22/21 lisinopriL [Prinivil] 5 mg PO DAILY 09/21/20 09/22/21 Topiramate [Topamax] 25 mg PO DAILY 09/22/21 09/22/21 - Allergies Allergies/Adverse Reactions: Allergies Allergy/AdvReac Type Severity Reaction Status Date / Time typhoid vaccine Allergy massive Verified 09/22/21 19:53 [Typhoid Vaccine] headache - Social History Does the pt smoke?: No Smoking Status: Never smoker Does the pt drink ETOH?: Yes Does the pt have substance abuse?: No - Immunizations Immunizations are current?: Yes - POLST Patient has POLST: No PD ED PE NORMAL - Vitals Vital signs reviewed: Yes - General General: Alert and oriented X 3, No acute distress - Neck Neck: Supple, no meningeal sign, No bony TTP - Extremities Extremities: Other (The left thumb is not tender at all and he actually has full range of motion of the left thumb. There is no tenderness at the left snuffbox and no pain with axial loading of the thumb. He does have tenderness in the area of probably the lunate but only on the palmar surface dorsal carpals a) - Neuro Neuro: Alert and oriented X 3, Normal speech Results - Vitals Vitals: Vital Signs - 24 hr 09/22/21 19:50 Temperature 96.0 C H Heart Rate 88 Respiratory 18 Rate Blood Pressure 152/89 H O2 Saturation 96 Oxygen O2 Source Room air PD MEDICAL DECISION MAKING - ED course ED course: 50-year-old gentleman presents with an isolated left wrist injury. Pain seems to be over the mid carpals. There is no tenderness or pain at the snuffbox and no pain with axial loading of the thumb so I do not have any suspicion for scaphoid injury. He declined splinting. Departure - Departure Disposition: 01 Home, Self Care Clinical Impression: Left wrist sprain Qualifiers: Encounter type: initial encounter Qualified Code(s): S63.502A - Unspecified sprain of left wrist, initial encounter Condition: Good Record reviewed to determine appropriate education?: Yes Instructions: ED Sprain Wrist Comments: As discussed, the x-ray is normal. If you are still having pain in a week recheck with your doctor for repeat x-rays return for new or worsening symptoms. Tylenol and/or ibuprofen as needed for pain.
--- NOTE | 2021-09-22 21:11 | XRAY Report ---
PROCEDURE: Wrist 4 View LT INDICATIONS: carpal injury TECHNIQUE: 4 views of the wrist were acquired. COMPARISON: None FINDINGS: Bones: No fractures or dislocations. No suspicious bony lesions. Scaphoid view: No visualized fracture. Soft tissues: No suspicious soft tissue calcifications. IMPRESSION: No visualized acute fracture or dislocation. However, occult injury cannot be excluded. Recommend abdirahman rt interval imaging follow-up in 7-10 days as clinically indicated for additional evaluation. Reviewed by: Ann-Marie Luna MD on 09/22/2021 9:10 PM PDT Approved by: Ann-Marie Luna MD on 09/22/2021 9:10 PM PDT Station ID: [id number]
== END 2021-09-22 21:20 | disposition home or self-care (01) ==
LOC: ED 19:46
DX: S63.502A Unspecified sprain of left wrist, initial encounter (principal); W01.0XXA Fall on same level from slipping, tripping and stumbling without subsequent striking against object, initial encounter; Y93.01 Activity, walking, marching and hiking
CPT/HCPCS: 99282; 99283

== ENCOUNTER 2023-06-19 08:44 | Emergency (ER) | payer OTHER ==
[2023-06-19 09:34] LABS: BASOPHILS # (AUTO) 0.1 10^3/uL (0.0-0.1); BASOPHILS % (AUTO) 0.6 %; EOSINOPHILS # (AUTO) 0.2 10^3/uL (0.0-0.7); EOSINOPHILS % (AUTO) 2.5 %; HCT - HEMATOCRIT 45.8 % (42.0-52.0); HGB - HEMOGLOBIN 15.6 g/dL (14.0-18.0); LYMPHOCYTES # (AUTO) 1.2 10^3/uL (1.5-3.5); LYMPHOCYTES % (AUTO) 13.9 %; MEAN CORPUSCULAR HEMOGLOBIN 29.9 pg (27.0-31.0); MEAN CORPUSCULAR HGB CONC 34.1 g/dL (32.0-36.0); MEAN CORPUSCULAR VOLUME 87.7 fL (80.0-94.0); MEAN PLATELET VOLUME 9.3 fL (7.4-11.4); MONOCYTES # (AUTO) 0.9 10^3/uL (0.0-1.0); MONOCYTES % (AUTO) 10.1 %; NEUTROPHILS # (AUTO) 6.2 10^3/uL (1.5-6.6); NEUTROPHILS % (AUTO) 72.8 %; PLT - PLATELET COUNT 258 10^3/uL (130-450); RED BLOOD COUNT 5.22 10^6/uL (4.70-6.10); RED CELL DISTRIBUTION WIDTH 12.3 % (12.0-15.0); WHITE BLOOD COUNT 8.5 x10^3/uL (4.8-10.8)
[2023-06-19 09:49] LABS: ALBUMIN 4.4 g/dL (3.2-5.5); ALBUMIN/GLOBULIN RATIO 1.6 (1.0-2.2); BILIRUBIN,TOTAL 0.6 mg/dL (0.2-1.0); CALCIUM 9.3 mg/dL (8.5-10.3); CREATININE 1.2 mg/dL (0.6-1.3); POTASSIUM 4.4 mmol/L (3.5-4.5); TOTAL PROTEIN 7.2 g/dL (6.4-8.9)
[2023-06-19] MEDS ORDERED: SODIUM CHLORIDE 0.9% 1,000 ML IV STA (10:05)
[2023-06-19 10:27] LABS: BILIRUBIN,URINE NEGATIVE (NEGATIVE); GLUCOSE, URINE (UA) NEGATIVE (NEGATIVE); KETONES,URINE (UA) NEGATIVE (NEGATIVE); LEUKOCYTE ESTERASE, URINE NEGATIVE (NEGATIVE); NITRITE,URINE NEGATIVE (NEGATIVE); OCCULT BLOOD,URINE NEGATIVE (NEGATIVE); PROTEIN,URINE NEGATIVE (NEGATIVE); UROBILINOGEN,URINE 0.2 (NORMAL) E.U./dL (NORMAL)
[2023-06-19 10:28] LABS: CLARITY,URINE CLEAR (CLEAR)
--- NOTE | 2023-06-19 12:04 | ED Physician Documentation ---
PD HPI NVD - Stated complaint Stated Complaint: STOMACH PX/DIARRHEA - Chief complaint Chief Complaint: Abd Pain - History obtained from History obtained from: Patient - Additonal information Additional information: Patient is a 52-year-old male presenting for evaluation of left lower quadrant pain and diarrhea for the past 3 to 4 days. He reports that today he started having some blood mixed in with yellow stool. He states he has had blood with his stools before and has a history of hemorrhoids. No nausea or vomiting and denies prior abdominal surgeries. Has had follow-up with GI and had colo noscopies in the past. Denies a history of diverticulitis. No fevers. No dysuria or hematuria. Does not take a blood thinner.Denies use of NSAIDs.He has tried loperamide without any improvement. Review of Systems Constitutional: denies: Fever Cardiac: denies: Chest pain / pressure Respiratory: denies: Dyspnea GI: reports: Abdominal Pain, Diarrhea, Bloody / black stool. denies: Nausea, Vomiting : denies: Dysuria PD PAST MEDICAL HISTORY - Past Medical History Cardiovascular: Other Respiratory: Sleep apnea, CPAP use Neuro: Headaches Endocrine/Autoimmune: None GI: GERD : None HEENT: Other Psych: None Musculoskeletal: Other Derm: None - Past Surgical History Past Surgical History: Yes - Present Medications Home Medications: Ambulatory Orders Medication Instructions Recorded Confirmed Omeprazole [PriLOSEC] 20 mg PO DAILY 12/15/16 02/12/22 lisinopriL [Prinivil] 5 mg PO DAILY 09/21/20 02/12/22 Topiramate [Topamax] 25 mg PO DAILY 09/22/21 02/12/22 Sucralfate [Carafate] 1 gm PO ACHS #60 tablet 02/12/22 Amox/Clav 875/125 [Augmentin] 1 each PO Q12H #14 tablet 06/19/23 - Allergies Allergies/Adverse Reactions: Allergies Allergy/AdvReac Type Severity Reaction Status Date / Time typhoid vaccine Allergy massive Verified 02/12/22 10:17 [Typhoid Vaccine] headache - Social History Does the pt smoke?: No Smoking Status: Never smoker Does the pt drink ETOH?: Yes Does the pt have substance abuse?: No - Immunizations Immunizations are current?: Yes - POLST Patient has POLST: No PD ED PE NORMAL - General General: Alert and oriented X 3, No acute distress, Well developed/nourished - HEENT HEENT: Atraumatic - Neck Neck: Supple, no meningeal sign - Cardiac Cardiac: RRR - Respiratory Respiratory: No respiratory distress, Clear bilaterally - Abdomen Abdomen: Normal bowel sounds, Soft, Non distended, Other (Mild left lower quadrant tenderness, no mass or hernia) - Derm Derm: Warm and dry - Neuro Neuro: Normal speech Results - Vitals Vitals: Vital Signs - 24 hr 06/19/23 06/19/23 06/19/23 08:55 10:57 12:31 Temperature 36.8 C 36.3 C L 36.1 C L Heart Rate 77 79 68 Respiratory 15 18 18 Rate Blood Pressure 127/78 120/75 126/88 H O2 Saturation 98 97 98 06/19/23 13:17 Temperature Heart Rate 78 Respiratory 18 Rate Blood Pressure 133/91 H O2 Saturation 99 Oxygen O2 Source Room air - Labs Labs: Laboratory Tests 06/19/23 06/19/23 06/19/23 09:30 09:30 10:21 WBC 8.5 RBC 5.22 Hgb 15.6 Hct 45.8 MCV 87.7 MCH 29.9 MCHC 34.1 RDW 12.3 Plt Count 258 MPV 9.3 Neut # (Auto) 6.2 Lymph # (Auto) 1.2 L [place] # (Auto) 0.9 Eos # (Auto) 0.2 Baso # (Auto) 0.1 Absolute Nucleated RBC 0.00 Nucleated RBC % 0.0 Sodium 135 Potassium 4.4 Chloride 105 Carbon Dioxide 22 Anion Gap 8.0 BUN 15 Creatinine 1.2 Estimated GFR (MDRD) 64 L Glucose 111 H Calcium 9.3 Total Bilirubin 0.6 AST 24 ALT 51 Alkaline Phosphatase 72 Total Protein 7.2 Albumin 4.4 Globulin 2.8 Albumin/Globulin Ratio 1.6 Lipase 26 Urine Color DARK YELLOW Urine Clarity CLEAR Urine pH 6.0 Ur Specific [place] >=1.030 H Urine Protein NEGATIVE Urine Glucose (UA) NEGATIVE Urine Ketones NEGATIVE Urine Occult Blood NEGATIVE Urine Nitrite NEGATIVE Urine Bilirubin NEGATIVE Urine Urobilinogen 0.2 (NORMAL) Ur Leukocyte Esterase NEGATIVE Ur Microscopic Review NOT INDICATED Urine Culture Comments NOT INDICATED PD Medical Decision Making - ED course Complexity details: reviewed results, re-evaluated patient, d/w patient ED course: Patient is a 52-year-old male presenting for evaluation of left lower quadrant pain with diarrhea for the past 4 days including some blood mixed in with stools today. Has a history of hemorrhoids. Was not able to give much of a stool sample but did have a little bit of yellow stool with a blood, seen. Mild left lower quadrant tenderness but otherwise abdominal exam is benign. Vital signs are stable. CBC and chemistries were obtained and reviewed and without significant findings. A CT scan was obtained which demonstrates findings of colitis in the distal colon. There is also findings of simple amatory changes around the ileum. Patient does not have tenderness over here. Denies a history suggestive of Crohn's and has seen GI in the past. Not had further diarrhea here to give a stool sample. Discussed options for treatment. Patient has tried loperamide without improvement In days past. He is agreeable to trial of antibiotics and counseled on need for close follow-up with his PCP as well as GI. Patient also advised on concerning symptoms to return for. He declines pain medications here. Departure - Departure Disposition: Home, Self Care Clinical Impression: Colitis, Hematochezia Condition: Stable Instructions: ED Gastroenteritis Bacterial, ED Hematochezia Stable Prescriptions: Amox/Clav 875/125 [Augmentin] 1 each PO Q12H #14 tablet Comments: Your blood testing is normal but your CT scan does show signs of colitis which is inflammation in the colon. After discussion with you we have opted to trial a course of antibiotics to see if this helps clear up the diarrhea. I have sent this prescription to [facility] in [place]. I would also recommend follow-up with your primary care provider and GI doctor. There were findings of inflammation along another portion of your intestinal tract which can be seen in the setting of Crohn's. You also had blood mixed in with your stools which again should be evaluated. If you develop any worsening symptoms such as increased bleeding, lightheadedness, worsening pain or have any other concerns please return to the emergency department. IMPRESSION: Mild chronic contrast in the descending colon, suggestive of colitis. Some mucosal fat deposition within the distal iliopsoas and terminal ileus, suggestive of chronic inflammatory change. Findings can be seen in the setting of Crohn's disease. Correlate with prior symptoms. Hepatic steatosis. Forms: PCP List Discharge Date/Time: 06/19/23 13:17
--- NOTE | 2023-06-19 12:30 | CT Report ---
PROCEDURE: ABDOMEN/PELVIS W INDICATIONS: LLQ pain/diarrhea CONTRAST: Omni 300 100ml TECHNIQUE: After the administration of intravenous contrast, 5 mm thick sections acquired from the diaphragms to the symphysis. 5 mm thick coronal and sagittal reformats were acquired. For radiation dose reducti on, the following was used: automated exposure control, adjustment of mA and/or kV according to antonia ent size. COMPARISON: CT 09/23/2020. FINDINGS: Image quality: Excellent. Lung bases and heart: Unremarkable. Liver: Hepatic steatosis. Gallbladder and biliary tree: No radiopaque stones or wall thickening. No biliary dilation. Spleen: No splenomegaly. Pancreas: No pancreatic ductal dilation. Adrenals: No adrenal nodule. Kidneys and ureters: No hydronephrosis. No renal cystic lesion which requires follow up. No solid mas s. Bowel and peritoneum: No bowel distension. No pathologic free fluid. Submucosal fat deposition of the distal ileum and terminal ileum. Normal appendix. Mild colonic fat stranding of the descending colon . No minimal diverticulosis without evidence of diverticulitis. Lymph nodes: No central or retroperitoneal adenopathy. Vessels: No infrarenal aortic aneurysm. PELVIS Reproductive organs: Unremarkable. Bladder: No abnormal wall thickening, accounting for underdistension. Pelvic lymph nodes: No pelvic adenopathy by size criteria. Bones: No aggressive osseous abnormality. Other: No significant ventral or inguinal hernia. IMPRESSION: Mild chronic contrast in the descending colon, suggestive of colitis. Some mucosal fat deposition within the distal iliopsoas and terminal ileus, suggestive of chronic inf lammatory change. Findings can be seen in the setting of Crohn's disease. Correlate with prior sympto ms. Hepatic steatosis. Reviewed by: Abner Figueroa MD on 06/19/2023 12:29 PM PST Approved by: Abner Figueroa MD on 06/19/2023 12:29 PM PST Station ID: [id number]
[2023-06-19] MEDS ORDERED: iohexoL-300 100 ML VIAL IVP ONE (12:31)
[2023-06-19 13:20] VITALS: BP 133/91; O2SAT 99
== END 2023-06-19 13:17 | disposition home or self-care (01) ==
LOC: ED 08:44
DX: K52.9 Noninfective gastroenteritis and colitis, unspecified (principal); K92.1 Melena; Z79.899 Other long term (current) drug therapy
CPT/HCPCS: 36415; 74177; 80053; 81003; 83690; 85025; 96360; 99283; 99284; Q9967; 81001; 87086

== ENCOUNTER 2023-11-20 10:03 | Day surgery (SDC) | payer OTHER ==
[2023-11-20] MEDS: LACTATED RINGERS 1,000 ML IV ONE ×2 (10:57→13:57)
--- NOTE | 2023-11-20 12:27 | ANESTHESIA ---
Pre-Anesthesia VS, & Labs - Diagnosis GERD - Procedure EGD Vital Signs: Temp Pulse Resp BP Pulse Ox O2 Flow Rate 36.0 C L 68 15 132/77 H 95 11/20/23 10:10 11/20/23 10:10 11/20/23 10:10 11/20/23 10:10 11/20/23 10:10 Height: 6 ft Weight (kg): 112.9 kg Body Mass Index: 33.7 BMI Classification: Obese - NPO >8 hours Home Medications and Allergies Omeprazole [PriLOSEC] 20 mg PO DAILY 12/15/16 lisinopriL [Prinivil] 5 mg PO HS 09/21/20 Allergies/Adverse Reactions: Allergies Allergy/AdvReac Type Severity Reaction Status Date / Time typhoid vaccine Allergy massive Verified 11/19/23 14:00 [Typhoid Vaccine] headache Anes History & Medical History - Anesthetic History Anesthesia Complications: reports: No previous complications - Medical History Cardiovascular: reports: Hypertension Pulmonary: reports: None Gastrointestinal: reports: GERD Urinary: reports: None Neuro: reports: Headaches Musculoskeletal: reports: None Endocrine/Autoimmune: reports: None Blood Disorders: reports: None Skin: reports: None Smoking Status: Never smoker - Surgical History Orthopedic: reports: Other (distal clavicle resection) Exam General: Alert, Oriented x3 Dental: WNL Mouth Opening: Greater than 4 Fingerbreadths Neck Mobility: Normal Mallampati classification: I Thyromental Distance: greater than 6 cm Respiratory: Lungs clear Cardiovascular: Regular rate Plan Anesthesia Type: Total IV Consent for Procedure(s) Verified and Reviewed: Yes Code Status: Attempt Resuscitation ASA classification: 2-Mild systemic disease Is this case an emergency?: No
[2023-11-20] MEDS ORDERED: PROPOFOL 500 MG/50 ML 500 MG/50 ML VIAL ONE (14:13)
--- NOTE | 2023-11-20 14:31 | ANESTHESIA POST OP EVALUATION ---
Anesthesia Post Eval - Post Anesthesia Eval Vitals: Last Vital Signs Temp 36.0 C L 11/20/23 13:57 Pulse 96 11/20/23 13:57 Resp 20 11/20/23 13:57 BP 140/101 H 11/20/23 13:57 Pulse Ox 97 11/20/23 13:57 O2 Flow Rate CV Function Including HR & BP: Stable Pain Control: Satisfactory Nausea & Vomiting: Negative Mental Status: Baseline Respiratory Status: Airway Patent Hydration Status: Satisfactory Anesthesia Complications: None
[2023-11-20 14:46] VITALS: BP 112/84; O2SAT 97
== END 2023-11-20 10:04 | disposition home or self-care (01) ==
LOC: SDS 10:03
PROVIDERS: ATTEND Surgery
PROC: 0DB58ZX Excision of Esophagus, Via Natural or Artificial Opening Endoscopic, Diagnostic (ICD-10-PCS; principal; 2023-11-20 12:30)
DX: K21.9 Gastro-esophageal reflux disease without esophagitis (principal); K44.9 Diaphragmatic hernia without obstruction or gangrene; K31.7 Polyp of stomach and duodenum; G47.30 Sleep apnea, unspecified; J45.909 Unspecified asthma, uncomplicated; I10 Essential (primary) hypertension; E66.9 Obesity, unspecified; Z68.34 Body mass index [BMI] 34.0-34.9, adult; Z79.899 Other long term (current) drug therapy; Z86.010 Personal history of colon polyps
CPT/HCPCS: 43239; J7120